=== PATIENT | female | born 1975 | race Caucasian/White ===

== ENCOUNTER 2019-07-28 17:35 | Emergency (ER) | payer SELFPAY ==
[2019-07-28 18:34] LABS: Absolute Lymphocytes (CBC) 2.6 K/uL (0.7-4.9); Hematocrit 38.9 % (36.0-45.0); Lymphocytes % 26.2 % (15.3-44.8); MPV 7.9 fL (7.6-11.3); RBC Red Blood Cell Count 4.58 M/uL (3.86-4.86)
[2019-07-28 18:54] LABS: BUN Blood Urea Nitrogen 7 mg/dL (7-18); Glucose Level 143 mg/dL (74-106)
--- NOTE | 2019-07-28 18:54 | RAD REPORT ---
EXAM DESCRIPTION: CT - Stone Protocol - 07/28/2019 6:44 pm CLINICAL HISTORY: Flank pain. lower back pain, hx of kidney stones COMPARISON: No comparisons TECHNIQUE: Axial images were obtained without oral or IV contrast. Lack of contrast limits solid org an and vascular assessment. The [id number] spans the entirety of the system partially obscuring uppermost abdomen and lung bases. Coronal reformatted images were obtained and reviewed. All CT scans are performed using dose optimization technique as appropriate and may include automated exposure control or mA/KV adjustment according to patient size. FINDINGS: The lower lung wise are clear. Cholelithiasis. Imaged portions of the liver and spleen show no suspicious findings on non-contrast imaging. The panc reas and adrenal glands are normal. No pathologic lymphadenopathy in the abdomen or pelvis. No urinary tract stones or obstructive uropathy. No bowel obstruction, free air, free fluid or abscess. Moderate stool in the colon.The appendix is no t identified as a discrete structure, however, no secondary findings of appendicitis are identified. Prominent L5-S1 spondylosis. IMPRESSION: No urinary tract stones or obstructive uropathy. Cholelithiasis. L5-S1 moderate spondylosis.
[2019-07-28 18:56] LABS: ALT/SGPT 12 U/L (12-78); AST/SGOT 7 U/L (15-37)
[2019-07-28 18:57] LABS: Albumin 3.8 g/dL (3.4-5.0); Lipase 154 U/L (73-393)
[2019-07-28 18:58] LABS: Urine Bacteria <20 /HPF (<20); Urine Culture Reflex Order NOT NEEDED; Urine RBC 20-50 /HPF (NONE SEEN)
--- NOTE | 2019-07-28 19:02 | EDPHYS ---
Physician Documentation [facility] Name: Khloe Hayes Age: 44 yrs Sex: Female : 1975 Arrival Date: 07/28/2019 Time: 17:37 Bed 3 Private MD: ED Physician Luis Carlos Munoz HPI: 07/27 18:13 This 44 yrs old Female presents to ER via Ambulatory with complaints of Back rn Pain. 18:13 The patient presents with pain that is acute, with no known mechanism of injury. The rn symptoms are located in the low back. Onset: The symptoms/episode began/occurred yesterday. The pain does not radiate. Associated signs and symptoms: Pertinent positives: constipation, Pertinent negatives: abdominal pain, fever, hematuria, incontinence, vomiting, weakness. Modifying factors: The patient symptoms are alleviated by nothing, the patient symptoms are aggravated by nothing. Severity of symptoms: At their worst the symptoms were mild, in the emergency department the symptoms are unchanged. The patient has experienced similar episodes in the past. Reports 2 weeks of mid-low back pain, worse yesterday and this morning, reports hx of kidney stones and UTI. Does not feel as painful as kidney stone. no fever/trauma/abd pain. At drug rehab and does not want narcotics. Reports also began her period recently and has not had a period in 1.5 years, attributes it to her meth use, states when on meth doesn't have her period. . 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 07/28/2019 aj1 Historical: - Allergies: 17:43 fish; aj1 - Home Meds: 17:43 risperidone 1 mg oral TbDL 1 tab once daily [Active]; glipizide 10 mg Oral tab 1 tab 2 aj1 times per day [Active]; trazodone 300 mg Oral tab 1 tab at bedtime [Active]; metformin 1,000 mg Oral tab 1 tab 2 times per day [Active]; desvenlafaxine 50 mg oral Tb24 1 tab once daily [Active]; buspirone 15 mg Oral tab 1 tab 2 times per day [Active]; - PMHx: 17:43 schizoaffective disorder; Bipolar disorder; Depression; Diabetes - NIDDM; Hepatitis; aj1 Kidney stones; Anxiety; - Immunization history:: Adult Immunizations up to date. - Family history:: not pertinent. - Hospitalizations: : No recent hospitalization is reported. ROS: 18:13 Constitutional: Negative for fever, chills, and weight loss, Cardiovascular: Negative rn for chest pain, palpitations, and edema, Respiratory: Negative for shortness of breath, cough, wheezing, and pleuritic chest pain, Abdomen/GI: Negative for abdominal pain, nausea, vomiting, diarrhea Back: + mid back pain : Negative for injury, discharge, and swelling, MS/Extremity: Negative for injury and deformity, Skin: Negative for injury, rash, and discoloration, Neuro: Negative for headache, weakness, numbness, tingling, and seizure. Exam: 18:13 Constitutional: This is a well developed, well nourished patient who is awake, alert, rn and in no acute distress. Sitting upright with legs crossed Head/Face: Normocephalic, atraumatic. Cardiovascular: Regular rate and rhythm. No pulse deficits. Respiratory: No increased work of breathing, no retractions or nasal flaring. Abdomen/GI: soft, non-tender Back: No spinal tenderness. Neg for CVAT Skin: Warm, dry MS/ Extremity: Pulses equal, no cyanosis. Neurovascular intact. Full, normal range of motion. Equal circumference. Neuro: Awake and alert, GCS 15, oriented to person, place, time, and situation. Cranial nerves II-XII grossly intact. Motor strength 5/5 in all extremities. Sensory grossly intact. Cerebellar exam normal. Normal gait. Vital Signs: 17:37 BP 121 / 83; Pulse 77; Resp 18; Pulse Ox 100% on R/A; aj1 17:37 Temp 97.8; em 18:45 BP 129 / 81; Pulse 80; Resp 18; Pulse Ox 99% on R/A; Pain 6/10; em 19:10 BP 125 / 76; Pulse 85; Resp 16; Temp 98; Pulse Ox 99% ; Pain 5/10; rr5 19:50 BP 121 / 75; Pulse 75; Resp 16; Pulse Ox 98% ; Pain 0/10; rr5 MDM: 17:57 Patient medically screened. rn 18:58 Differential diagnosis: arthritis, chronic back pain, hematuria, passed kidney stone, rn UTI. Data reviewed: vital signs, nurses notes, lab test result(s), radiologic studies, CT scan, and as a result, I will discharge patient. Counseling: I had a detailed discussion with the patient and/or guardian regarding: the historical points, exam findings, and any diagnostic results supporting the discharge/admit diagnosis, lab results, radiology results, the need for outpatient follow up, to return to the emergency department if symptoms worsen or persist or if there are any questions or concerns that arise at home. Response to treatment: the patient's symptoms have mildly improved after treatment, and as a result, I will discharge patient. Special discussion: I discussed with the patient/guardian in detail that at this point there is no indication for admission to the hospital. It is understood, however, that if the symptoms persist or worsen the patient needs to return immediately for re-evaluation. 07/27 18:08 Order name: Basic Metabolic Panel rn 07/27 18:08 Order name: CBC with Diff; Complete Time: 18:40 rn 07/27 18:08 Order name: Creatinine for Radiology; Complete Time: 18:52 rn 07/27 18:08 Order name: Hepatic Function rn 07/27 18:08 Order name: Lipase rn 07/27 18:08 Order name: Urine Microscopic Only; Complete Time: 19:01 rn 07/27 18:08 Order name: IV Saline Lock; Complete Time: 18:10 rn 07/27 18:08 Order name: Labs collected and sent; Complete Time: 18:10 rn 07/27 18:08 Order name: Urine Test (obtain specimen); Complete Time: 18:10 rn 07/27 18:08 Order name: Urine Dipstick-Ancillary (obtain specimen); Complete Time: 18:10 rn 07/27 18:08 Order name: CT Stone Protocol; Complete Time: 18:57 rn 07/27 18:26 Order name: Urine Dipstick--Ancillary (enter results) eb 07/27 18:26 Order name: Urine --Ancillary (enter results) eb Administered Medications: 19:29 Drug: TORadol - Ketorolac 15 mg Route: IVP; Site: right antecubital; rr5 19:50 Follow up: Response: No adverse reaction; Marked relief of symptoms rr5 Disposition: 07/28/19 19:00 Discharged to Home. Impression: Hematuria, unspecified, Low back pain. - Condition is Stable. - Discharge Instructions: Back Pain, Adult, Hematuria, Adult. - Medication Reconciliation Form, Thank You Letter, Antibiotic Education, Prescription Opioid Use form. - Follow up: Private Physician; When: As needed; Reason: Recheck today's complaints, Re-evaluation by your physician. - Problem is new. - Symptoms have improved. Signatures: Dispatcher [employer] EDChristine Oliva, RN RN aj1 Luis Carlos Munoz MD MD rn Roque, Raymond, RN RN rr5 Corrections: (The following items were deleted from the chart) 18:17 18:13 Constitutional: Negative for fever, chills, and weight loss, Cardiovascular: rn Negative for chest pain, palpitations, and edema, Respiratory: Negative for shortness of breath, cough, wheezing, and pleuritic chest pain, Abdomen/GI: Negative for abdominal pain, nausea, vomiting, diarrhea, and constipation, Back: + mid back pain : Negative for injury, discharge, and swelling, MS/Extremity: Negative for injury and deformity, Skin: Negative for injury, rash, and discoloration, Neuro: Negative for headache, weakness, numbness, tingling, and seizure, rn 19:54 19:00 07/28/2019 19:00 Discharged to Home. Impression: Hematuria, unspecified; Low back rr5 pain. Condition is Stable. Forms are Medication Reconciliation Form, Thank You Letter, Antibiotic Education, Prescription Opioid Use. Follow up: Private Physician; When: As needed; Reason: Recheck today's complaints, Re-evaluation by your physician. Problem is new. Symptoms have improved. rn
--- NOTE | 2019-07-28 19:02 | ER ---
Nurse's Notes [facility] Name: Khloe Hayes Age: 44 yrs Sex: Female : 1975 Arrival Date: 07/28/2019 Time: 17:37 Bed 3 Private MD: Diagnosis: Hematuria, unspecified;Low back pain Presentation: 07/27 17:37 Chief complaint: EMS states: Patient is from [facility] where she has been for the aj1 past 2 weeks, today she started having severe lower back pain, reports a history of kidney stones. Patient also reports that she has vaginal bleeding that started today, states that she has not had a period in 2 years. Coronavirus screen: The patient has NOT traveled to a country currently being monitored by the CDC within the last 14 days. Ebola Screen: Patient denies travel to an Ebola-affected area in the 21 days before illness onset. Initial Sepsis Screen: Does the patient meet any 2 criteria? No. Patient's initial sepsis screen is negative. Does the patient have a suspected source of infection? Yes: Dysuria/Frequency/Urgency/UTI. Risk Assessment: Do you want to hurt yourself or someone else? Patient reports no desire to harm self or others. 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 - Family history:: not pertinent. - Hospitalizations: : No recent hospitalization is reported. Screenin:39 Abuse screen: Denies threats or abuse. Nutritional screening: No deficits noted. em Tuberculosis screening:. Fall Risk None identified. Assessment: 17:39 General: Appears in no apparent distress. uncomfortable, Behavior is calm, cooperative, em Denies fever. Pain: Complains of pain in left low back and right low back Pain currently is 7 out of 10 on a pain scale. Pain began 2-3 days ago. Neuro: Level of Consciousness is awake, alert, obeys commands, Oriented to person, place, time, situation, Appropriate for age. Cardiovascular: Capillary refill < 3 seconds Patient's skin is warm and dry. Rhythm is regular. Respiratory: Airway is patent Respiratory effort is even, unlabored, Respiratory pattern is regular, symmetrical. GI: Abdomen is flat, Patient currently denies nausea, vomiting. : Reports burning with urination, vaginal bleeding that is. Derm: Skin is intact, is healthy with good turgor, Skin is pink, warm \T\ dry. Musculoskeletal: Capillary refill < 3 seconds, Range of motion: intact in all extremities. 18:50 Reassessment: request some Tylenol for pain, provider notified. em 19:10 Reassessment: Patient appears in no apparent distress at this time. Patient is alert, rr5 oriented x 3, equal unlabored respirations, skin warm/dry/pink. complaining of back pain. pain score 7/10. ED provider with order made and carried out. 19:55 Reassessment: Patient appears in no apparent distress at this time. Patient is alert, rr5 oriented x 3, equal unlabored respirations, skin warm/dry/pink. discharge instruction given and explained without complaints made. Patient denies pain at this time. Patient states feeling better. Patient states symptoms have improved. Vital Signs: 17:37 BP 121 / 83; Pulse 77; Resp 18; Pulse Ox 100% on R/A; aj1 17:37 Temp 97.8; em 18:45 BP 129 / 81; Pulse 80; Resp 18; Pulse Ox 99% on R/A; Pain 6/10; em 19:10 BP 125 / 76; Pulse 85; Resp 16; Temp 98; Pulse Ox 99% ; Pain 5/10; rr5 19:50 BP 121 / 75; Pulse 75; Resp 16; Pulse Ox 98% ; Pain 0/10; rr5 ED Course: 17:37 Patient arrived in ED. aj1 17:39 Triage completed. aj1 17:39 Patient has correct armband on for positive identification. Bed in low position. Call em light in reach. Side rails up X2. Pulse ox on. NIBP on. 17:39 Splint/sling/ice applied as appropriate. em 17:57 Luis Carlos Munoz MD is Attending Physician. rn 18:02 Initial lab(s) drawn, by me, sent to lab. Inserted saline lock: 22 gauge in right em antecubital area, using aseptic technique. Blood collected. 18:09 Srinivasan Elizondo, RN is Primary Nurse. em 18:46 CT Stone Protocol In Process Unspecified. EDMS 19:50 No provider procedures requiring assistance completed. IV discontinued, intact, rr5 bleeding controlled, No redness/swelling at site. Pressure dressing applied. Administered Medications: 19:29 Drug: TORadol - Ketorolac 15 mg Route: IVP; Site: right antecubital; rr5 19:50 Follow up: Response: No adverse reaction; Marked relief of symptoms rr5 Outcome: 19:00 Discharge ordered by . rn 19:50 Discharged to home ambulatory. rr5 19:50 Condition: stable 19:50 Discharge instructions given to patient, Instructed on discharge instructions, follow up and referral plans. Demonstrated understanding of instructions, follow-up care. 19:54 Patient left the ED. rr5 Signatures: Dispatcher [employer] Christine Jay RN RN aj Srinivasan Elizondo, MALI SAMSON Luis Carlos Munoz MD MD rn Roque, Raymond, RN RN rr5
[2019-07-28 19:05] LABS: Alkaline Phosphatase 69 U/L (45-117); Bicarbonate 25 mmol/L (21-32); Bilirubin Direct < 0.1 mg/dL (0-0.2); Bilirubin Total 0.2 mg/dL (0.2-1.0); Protein, Total 7.7 g/dL (6.4-8.2); Sodium Level 140 mmol/L (136-145)
[2019-07-28] MEDS ORDERED: KETOROLAC 30 MG/ML INJ ONE (19:27)
[2019-07-28 20:06] VITALS: TEMP 97.8
[2019-07-28 20:07] VITALS: BP 129/81; O2SAT 99
[2019-07-28 20:35] LABS: Urine Blood 3+ (NEG); Urine Glucose NEGATIVE (NEG); Urine Protein NEGATIVE (NEG); Urine Specific Gravity 1.015 (1.005-1.030)
== END 2019-07-28 19:54 | disposition home or self-care (01) ==
LOC: ER 17:35
DX: R31.9 Hematuria, unspecified (principal); E11.9 Type 2 diabetes mellitus without complications; F31.9 Bipolar disorder, unspecified; Z91.013 Allergy to seafood
CPT/HCPCS: 36415; 74176; 76377; 80048; 80076; 81003; 81015; 81025; 83690; 85025; 96374; 99284

== ENCOUNTER 2019-07-29 14:18 | Emergency (ER) | payer SELFPAY ==
--- NOTE | 2019-07-29 16:40 | ER ---
Nurse's Notes [facility] Name: Khloe Hayes Age: 44 yrs Sex: Female : 1975 Arrival Date: 07/29/2019 Time: 14:23 Bed 23 Private MD: Diagnosis: Presentation: 07/28 15:00 Chief complaint: Patient states: vaginal bleeding that began yesterday. Pt was seen in ER yesterday evening and diagnosed with hematuria and told her she may have passed a kidney stone. Also c/o abd pain that began today. Coronavirus screen: The patient has NOT traveled to a country currently being monitored by the [facility] within the last 14 days. Proceed with normal triage procedures. Ebola Screen: Patient denies exposure to infectious person. Patient denies travel to an Ebola-affected area in the 21 days before illness onset. Initial Sepsis Screen: Does the patient meet any 2 criteria? No. Patient's initial sepsis screen is negative. Does the patient have a suspected source of infection? No. Patient's initial sepsis screen is negative. Risk Assessment: Do you want to hurt yourself or someone else? Patient reports no desire to harm self or others. 15:00 Method Of Arrival: Ambulatory ss 15:00 Acuity: NICOLE 3 ss Historical: - Allergies: 15:02 fish; ss - PMHx: 15:02 Anxiety; Bipolar disorder; Depression; Diabetes - NIDDM; Hepatitis; Kidney stones; ss schizoaffective disorder; - Immunization history:: Adult Immunizations up to date. - Social history:: Smoking status: Patient reports the use of cigarette tobacco products, smokes one-half pack cigarettes per day. Assessment: 14:32 Reassessment: called patient to triage. Unable to locate patient in ER lobby or parking ss lot. 14:38 Reassessment: Called patient to triage. No response, unable to locate patient. 15:50 Reassessment: [facility]. Unable to locate patient. Registration staff member stated they saws her walk towards [employer]. 16:15 Reassessment: called from lobby to exam room. No answer. Unable to locate patient. 16:36 Reassessment: Patient appears in no apparent distress at this time. Feels better. No ll1 pain or vaginal bleeding now. Chose to leave without seeing ER physician. Alert and oriented x 4, Gait steady. Vital Signs: 15:00 BP 132 / 72; Pulse 85; Resp 16; Temp 98.4(TE); Pulse Ox 98% on R/A; Weight 99.79 kg; Height 5 ft. 9 in. (175.26 cm); Pain 5/10; 15:00 Body Mass Index 32.49 (99.79 kg, 175.26 cm) ED Course: 14:23 Patient arrived in ED. mr 15:01 Triage completed. 15:02 Arm band placed on right wrist. 16:11 Rufino Yan MD is Attending Physician. danika 16:21 Ingrid Wick, RN is Primary Nurse. ll1 Administered Medications: No medications were administered Outcome: 16:37 Eloped from patient exam room, before seeing physician Instructed to return if needed. ll1 16:37 Condition: Walked out of ER. Left without seeing ER physician. 16:40 Patient left the ED. ll1 Signatures: Rufino Yan MD MD cha Rivera, Mary mr Smirch, Shelby, MALI RN Ingrid Wick, MALI RN ll1
[2019-07-29 16:45] VITALS: BP 132/72; TEMP 98.4; O2SAT 98
== END 2019-07-29 16:40 | disposition left against medical advice (07) ==
LOC: ER 14:18
DX: R10.9 Unspecified abdominal pain (principal); Z53.21 Procedure and treatment not carried out due to patient leaving prior to being seen by health care provider
CPT/HCPCS: 99281